=== PATIENT | male | born 2000 | race Caucasian/White ===

== ENCOUNTER 2023-03-20 22:20 | Emergency (ER) | payer SELFPAY ==
[~2023-03-20] VITALS: Ht 175.3 cm; Wt 121.0 kg
[2023-03-20 23:41] VITALS: BP 128/71
== END 2023-03-20 23:45 | disposition left against medical advice (07) ==
LOC: ER 22:20
DX: R55 Syncope and collapse (principal)
CPT/HCPCS: 99283